=== PATIENT | male | born 1960 | race Caucasian/White ===

== ENCOUNTER 2019-12-29 00:23 | Inpatient (IN) | payer OTHER ==
[~2019-12-29] VITALS: Ht 170.2 cm; Wt 106.5 kg
[2019-12-29] VITALS (46 sets, daily range): BP systolic 76–143; BP diastolic 38–77
[~2019-12-29 00:23] MED LIST: HYDROCODONE-AP1 EAC6 PO; TESSALON PERLE100 MG PO; ZPAK PO
[2019-12-29] MEDS ORDERED: FUROSEMIDE 40 M40 MG PO (00:36)
[2019-12-29] MEDS ORDERED: KLOR-CON 10 ER10 MEQ PO (00:37)
[2019-12-29] MEDS ORDERED: SPIRONOLACTONE25 MG PO (00:37)
[2019-12-29] MEDS ORDERED: ALLOPURINOL 10100 M3 PO (00:37)
[2019-12-29] MEDS ORDERED: ATORVASTATIN CA80 MG PO (00:37)
[2019-12-29] MEDS ORDERED: CARVEDILOL25 MG PO (00:37)
[2019-12-29] MEDS ORDERED: ASA81BEC PO (00:38)
[2019-12-29] MEDS ORDERED: ENTRESTO 97 MG1 EACH PO (00:38)
[2019-12-29] MEDS ORDERED: COLCRYS0.6 MG PO (00:38)
[2019-12-29] MEDS ORDERED: PROTONIX40 M2 PO (00:38)
[2019-12-29 00:57] LABS: ABSOLUTE BASOPHILS 0.1 thou/uL (0.0-0.2); ABSOLUTE EOSINOPHILS 0.2 thou/uL (0.0-0.7); ABSOLUTE LYMPHOCYTES 0.8 thou/uL (0.8-5.3); ABSOLUTE MONOCYTES 0.7 thou/uL (0.0-1.2); ABSOLUTE NEUTROPHILS 8.7 thou/uL (1.6-8.1); BASOPHILS 1.1 %; EOSINOPHILS 2.2 %; HEMATOCRIT 34.7 % (42.0-52.0); LYMPHOCYTES 7.6 %; MCH 28.8 pg (26.0-34.0); MCHC 31.7 g/dL (28.0-37.0); MCV 90.7 fL (80.0-100.0); MONOCYTES 6.7 %; NUCLEATED RBCS 0 /100WBC; PLATELET COUNT* 227 thou/uL (150-400); POLYS 82.4 %; RBC 3.82 mil/uL (4.50-6.00); RDW-CV 17.2 % (10.5-14.5); WBC 10.6 thou/uL (4.0-11.0)
[2019-12-29 01:11] LABS: CALCIUM 8.2 mg/dL (8.5-10.1); CREATININE 4.2 mg/dL (0.6-1.3)
[2019-12-29 01:15] LABS: APTT 29.4 Seconds (25.0-31.3); INR 1.1; PROTIME 11.3 Seconds (9.20-11.50)
[2019-12-29 01:17] LABS: POTASSIUM 6.6 mmol/L (3.5-5.1)
[2019-12-29 01:23] LABS: ALBUMIN 3.4 g/dL (3.4-5.0); CK-MB MASS 0.7 ng/mL (<0.5-3.6); MAGNESIUM 2.1 mg/dL (1.8-2.4); TOTAL BILIRUBIN 0.4 mg/dL (<0.1-1.0); TOTAL PROTEIN 7.1 g/dL (6.4-8.2)
[2019-12-29 02:19] LABS: CALCIUM 7.7 mg/dL (8.5-10.1); CREATININE 4.3 mg/dL (0.6-1.3)
[2019-12-29 02:31] LABS: POTASSIUM 6.9 mmol/L (3.5-5.1)
[2019-12-29 06:50] LABS: MAGNESIUM 2.2 mg/dL (1.8-2.4)
[2019-12-29 06:51] LABS: POTASSIUM 7.2 mmol/L (3.5-5.1)
--- NOTE | 2019-12-29 07:50 | NUR ---
ADMITTED TO ICU BED 5 AT 0315, SEE ASSESSMENTS. LEVOPHED TITRATED FOR MAP >65. PT REPORTS HE HAS HAD A DRY COUGH AND NAUSEA X 1 MONTH, INTERMITTED DIARRHEA X 2-3 WEEKS. PT REPORTS RECENTLY HAVING INCREASED BLE SWELLING FOR WHICH HE TREATS BY "DOUBLING UP ON MY LASIX AND DRINKING LESS FLUIDS." APPROXIMATELY 0630, ERP MANAGER ALARMED FOR TACHYCARDIA WITH SUSTAINED HR 120-130S. UPON CHECKING ON PT HE REPORTED 3/10 CHEST PAIN AND NAUSEA. SHORTLY THEREAFTER PT HAD ONE EPISODE OF EMESIS. EKG OBTAINED, NO CHANGE WHEN COMPARED TO ER EKG. BMP AND TROPONING OBTAINED, CRITICAL TROPONIN AND POTASSIUM CALLED TO DR BOBO, ALSO INFORMED OF PTS CP & EKG; ORDERS RECEIVED. DR SANDOVAL ON UNIT AT THIS TIME AND ALSO UPDATED.
[2019-12-29 08:24] LABS: BE -12.5 mmol/L (-2 to +3); PCO2 39.3 mmHg (35.0-45.0)
[2019-12-29 08:28] LABS: PO2 40.7 mmHg (75.0-100.0)
[2019-12-29 08:29] LABS: pH 7.195 (7.340-7.450)
[2019-12-29 10:47] LABS: BE -8.9 mmol/L (-2 to +3)
[2019-12-29 10:49] LABS: pH 7.289 (7.340-7.450)
[2019-12-29 11:42] LABS: HEMATOCRIT 34.3 % (42.0-52.0); HEMOGLOBIN 10.8 gm/dL (14.0-18.0); MCH 28.7 pg (26.0-34.0); MCHC 31.4 g/dL (28.0-37.0); MCV 91.2 fL (80.0-100.0); MPV 9.2 fl. (7.2-11.1); NUCLEATED RBCS 0 /100WBC; PLATELET COUNT* 240 thou/uL (150-400); RBC 3.76 mil/uL (4.50-6.00); RDW-CV 17.3 % (10.5-14.5); WBC 12.2 thou/uL (4.0-11.0)
[2019-12-29 12:00] LABS: CALCIUM 8.7 mg/dL (8.5-10.1); CREATININE 4.4 mg/dL (0.6-1.3)
[2019-12-29 12:02] LABS: POTASSIUM 6.3 mmol/L (3.5-5.1); TROPONIN-I LEVEL 3.57 ng/mL (<0.06)
[2019-12-29 12:03] LABS: URINE POTASSIUM-RANDOM 32.9 mmol/L
[2019-12-29 12:09] LABS: URINE BLOOD 1+ (Negative); URINE CLARITY CLEAR; URINE COLOR YELLOW; URINE GLUCOSE-RANDOM NEGATIVE (Negative); URINE KETONES NEGATIVE (Negative); URINE LEUKOCYTES-REFLEX NEGATIVE (Negative); URINE NITRITE-REFLEX NEGATIVE (Negative); URINE PROTEIN 2+ (Negative); URINE UROBILINOGEN 0.2 E.U./dl (0.2-1.0)
[2019-12-29 12:11] LABS: URINE BILIRUBIN 1+ (Negative)
[2019-12-29 12:12] LABS: ICTOTEST (BILI CONFIRMATORY) Negative (Negative)
--- NOTE | 2019-12-29 12:29 | CON ---
[address] [address] CONSULTATION Name: YANIV SPEARS Room: [address] ADM IN M.R.#: [id number] Admission: 12/29/19 Attend Phys: Ivory Murphy Discharge: Date of : 56 Report #: [id number] THIS REPORT FOR: //name// cc: Queta Hall Linda J. DO ~ THIS REPORT FOR: //name// CC: Queta Nunez CARDIOLOGY CONSULTATION HISTORY OF PRESENT ILLNESS: I was asked by Dr. Nunez to see this 59-year-old white male in Cardiology consultation for evaluation and treatment of atrial fibrillation with a rapid ventricular response as well as chest pain. This man may have a jrm-VG-omdagju elevation SC, although it is not clear as yet. He does have some congestive heart failure that appears to be acute on chronic. This is apparently combined congestive heart failure. He has a known ischemic cardiomyopathy with coronary artery disease and previous bypass graft surgery. He has had an AICD. He does have a history of gout. He has currently been hypotensive; however, his blood pressure is being supported with 10 mcg of Levophed and his blood pressure is quite adequate. He is in acute renal failure with hyperkalemia and is in need of dialysis. His creatinine is 4 with the potassium of 7.2 and bicarbonate of 19, BUN of 76, sodium of 134. Note, this man is not known to be diabetic. However, when he came into the ER, his blood sugar was 195 and his subsequent blood sugar was 250. He is probably diabetic. He was brought to the hospital because of chest pain. He described the chest pain as being upper epigastric in origin and associated with nausea. The pain had a slight burning quality, but later spread across his chest as a pressure sensation. He says it was like his previous MIs that he has had. He did have diaphoresis and shortness of breath and nausea. He did vomit before all of this started. When he arrived in the Emergency Room, he was in a wide complex tachycardia, which may well be atrial fibrillation, although it is not clear he is in a paced rhythm and the heart rate was 105 here. The earliest EKG was also paced and the heart rate was 119. It could well represent atrial fibrillation or atrial flutter or atrial fib/flutter. There is no evidence of ST-segment elevation SC on this study. Initial troponin was less than 0.06. A subsequent one about an hour and 15 minutes later was less than 0.06 and then one some 4 hours and 20 minutes later was 0.65. An NT-proBNP was 7215. The chest x-ray was read as cardiomegaly with pulmonary vascular congestion. This was an AP study, however, and there is mild bilateral interstitial opacities suggestion of mild interstitial pulmonary edema. A second chest x-ray was also done, which was similar. Currently, he is feeling fairly well. He says he has no chest pain and he denies shortness of breath. He is sitting up in bed. PAST MEDICAL HISTORY: As described above. He apparently does have a past history of atrial fibrillation as well. His home medications include Lasix [address] [place] [address] CONSULTATION Name: YANIV SPEARS Room: [address] IN M.R.#: [id number] Admission: 12/29/19 Attend Phys: Shant JacoboIvory Araujo Discharge: Date of : 56 Report #: [id number] mg daily, spironolactone 25 mg daily, potassium one tablet daily. I do note that for about 2 weeks, he had increased his Lasix because of his lower extremity edema. His lower extremity edema did not seem to respond to the diuretic. Note, he is followed at [facility] and we do not have any records as yet. MEDICATIONS: He is on carvedilol 25 mg b.i.d.; atorvastatin 80 mg daily; allopurinol 300 mg daily, presumably for gout; presumably his atorvastatin is for hypercholesterolemia. He is also on colchicine 0.6 mg daily p.r.n. gout, aspirin 81 mg daily, Entresto 97/103 mg b.i.d. and pantoprazole 40 mg daily. ALLERGIES: HE IS ALLERGIC TO PENICILLIN. SOCIAL HISTORY: Denies alcohol use or recreational drug use. He denies smoking. REVIEW OF SYSTEMS: Negative except as in the history of present illness and past medical history. He is negative for some 45 different complaints in 14 different system categories. Please see review of system form for details and negatives in review of systems. FAMILY HISTORY: Positive for coronary heart disease. PHYSICAL EXAMINATION: GENERAL: He presents as well-developed, well-nourished white male in no acute distress. VITAL SIGNS: His pulse was 83 and regular. Note he got digoxin 0.5 mg last night for an increased heart rate, respirations are 18 and regular, blood pressure is 107/69 and his temperature was 98.2. HEENT: His head was atraumatic. Eyes clear. NECK: Supple. There is no jugular venous distention or hepatojugular reflux. Thyroid is not enlarged. There is no adenopathy. SKIN: Warm and dry. Mucous membranes are moist. LUNGS: Reveal coarse breath sounds bilaterally with scattered crackles in the bases. HEART: Revealed normal first and second heart sound. There was no S4, no S3, no murmurs, rubs, thrills, heaves or gallops. The rhythm was regular and the rate was 82. PMI is not displaced. There are no murmurs, rubs, thrills, heaves or gallops. ABDOMEN: Soft, flat and nontender. No palpable masses, no organomegaly. EXTREMITIES: Reveal no cyanosis or clubbing. There was 1+ ankle and pedal edema. NEUROLOGIC: The patient mentated normally, talked normally, moved all extremities normally. IMPRESSION: [place] [address] CONSULTATION Name: YANIV SPEARS Room: [address] IN [facility]#: [id number] Admission: 12/29/19 Attend Phys: Ivory Murphy Discharge: Date of : 56 Report #: [id number] 1. Chest pain, possible non-ST segment elevation myocardial infarction. 2. Congestive heart failure, acute on chronic combined. 3. Ischemic cardiomyopathy. 4. Coronary artery disease. 5. Status post coronary artery bypass graft surgery. 6. Status post ICD. 7. Gout. 8. Atrial fibrillation with a rapid ventricular response. 9. Hypotension. 10. Hyperkalemia. 11. Acute renal failure. RECOMMENDATION: Continue his current medications. He is going to get dialyzed today. He is obviously in a metabolic imbalance. Hopefully, once his potassium is down and he is no longer acidotic and he has had some fluid taken off, he will be better. We will check more troponins and more EKGs. It is not clear given that he has renal failure that final troponin is meaningful. It is also not clear if the BNP is particularly meaningful. Thank you very much for asking me to see the patient. If there are any questions, please feel free to contact me. <ELECTRONICALLY SIGNED> By: Jai Ayala MD, FACC 12/29/19 1229 [id number]. Rustam Ayala MD, FACC /nt
[2019-12-29 12:30] LABS: SQUAMOUS 0-3 Few /LPF (0-3)
[2019-12-29 12:31] LABS: URINE RBC 3-10 Few /HPF (0-2); URINE WBC-REFLEX 6-15 Few /HPF (0-5)
[2019-12-29 12:38] LABS: BACTERIA-REFLEX None Seen /HPF (None Seen); MUCUS 4-6 Moderate strn/LPF (None Seen)
[2019-12-29 12:39] LABS: AMORPHOUS URATES Many /LPF (None Seen); HYALINE CASTS 4-10 Moderate /LPF (None Seen)
[2019-12-29 12:40] LABS: BE -7.7 mmol/L (-2 to +3); PCO2 43.8 mmHg (35.0-45.0)
[2019-12-29 12:47] LABS: PO2 46.9 mmHg (75.0-100.0); pH 7.257 (7.340-7.450)
[2019-12-29 13:07] LABS: ABSOLUTE LYMPHOCYTES 1.3 thou/uL (0.8-5.3); ABSOLUTE MONOCYTES 0.9 thou/uL (0.0-1.2); ANISOCYTOSIS 1+; PLATELET ESTIMATE ADEQUATE
[2019-12-29 13:08] LABS: BURR CELLS 1+
--- NOTE | 2019-12-29 14:12 | EKG ---
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 12/29/19 1410 0025 0025 Elmo Kapoor MD, [facility] /EPI
[2019-12-30] VITALS (24 sets, daily range): BP systolic 83–117; BP diastolic 41–66
[2019-12-30 04:56] LABS: HEMATOCRIT 29.5 % (42.0-52.0); HEMOGLOBIN 9.6 gm/dL (14.0-18.0); MCHC 32.5 g/dL (28.0-37.0); MCV 89.2 fL (80.0-100.0); MPV 9.2 fl. (7.2-11.1); RBC 3.31 mil/uL (4.50-6.00); RDW-CV 17.4 % (10.5-14.5); WBC 9.8 thou/uL (4.0-11.0)
[2019-12-30 05:11] LABS: ALBUMIN 3.1 g/dL (3.4-5.0); CALCIUM 8.1 mg/dL (8.5-10.1); MAGNESIUM 1.8 mg/dL (1.8-2.4); TOTAL BILIRUBIN 0.6 mg/dL (<0.1-1.0); TOTAL PROTEIN 6.6 g/dL (6.4-8.2)
[2019-12-30 05:16] LABS: CREATININE 3.2 mg/dL (0.6-1.3); POTASSIUM 3.9 mmol/L (3.5-5.1)
--- NOTE | 2019-12-30 06:56 | NUR ---
ASSUMED PATIENT CARE AT 1900. ASSESSMENTS COMPLETED CHARTED. CARDIAC MONITORING IN PLACE. BED LOCKED AND IN LOWEST POSITION. FALL PRECAUTIONS IN PLACE FOR PATIENT SAFETY. CLWR.
[2019-12-30 08:47] LABS: CHOLESTEROL 98 mg/dL (<200); HDL CHOLESTEROL 30 mg/dL (>40); LDL CHOLESTEROL 48 mg/dL (<100); SERUM ASSESSMENT Clear; TC:HDL 3.3 Ratio (Not establshd); TRIGLYCERIDE 103 mg/dL (<150); VLDL 21 mg/dL (<40)
--- NOTE | 2019-12-30 10:28 | CON ---
[facility] [address] [place] [address] CONSULTATION Name: YANIV SPEARS Room: [address] IN M.R.#: [id number] Admission: 12/29/19 Attend Phys: Ivory Murphy Discharge: Date of : 56 Report #: [id number] THIS REPORT FOR: //name// cc: Queta Hall Linda J. DO ~ THIS REPORT FOR: //name// CC: Queta Nunez DATE OF SERVICE: 12/29/2019 REQUESTING PHYSICIAN: Dr. Simpson REASON FOR CONSULTATION: Acute kidney injury and hyperkalemia. HISTORY OF PRESENT ILLNESS: The patient is a 59-year-old gentleman with medical history significant for coronary artery disease, status post bypass graft surgery. He presents with complaints of chest pain. In the Emergency Room, he was found to be hypotensive. Initially, he was given some fluids. Also he was found to be in acute kidney injury and hyperkalemia. The patient is not aware of history of renal disease, but I am not sure if this is a fact. Again, he could have some chronic kidney disease that he is not aware of. So, his potassium was 7. He was given insulin, bicarbonate, albuterol, Kayexalate. His urine output is close to zero. His potassium is still elevated, so he will be emergently dialyzed. MEDICAL HISTORY: Coronary artery disease, obesity, history of hypertension, history of congestive heart failure, unknown baseline of his creatinine. MEDICATIONS: Medications prior to admission reviewed. He was on furosemide 40 mg twice a day, spironolactone 25 mg a day, potassium chloride 10 mEq a day, Coreg 25 mg twice a day, atorvastatin, allopurinol, colchicine p.r.n., aspirin, Entresto twice a day and Protonix 40 mg a day. REVIEW OF SYSTEMS: As I mentioned earlier. SOCIAL HISTORY: Used to smoke, but quit several years ago. No alcohol abuse. PHYSICAL EXAMINATION: Physical exam was not performed due to COVID precaution. Discussed with the patient and reviewed physical exams that were done by interventional tech, Dr. Ayala, and by Dr. Simpson. I did not perform physical exam to preserve PPE and also reduce the risk of exposure to possibly deadly virus. Looking at the patient from the window, he is sitting in the bed, in no acute distress. [place] [address] CONSULTATION Name: YANIV SPEARS Room: [address]#: [id number] Admission: 12/29/19 Attend Phys: Ivory Murphy Discharge: Date of : 56 Report #: [id number] Physical exam by interventional tech and primary care physician revealed: NECK: Fatty. LUNGS: Some basilar crackles with no wheezes. CARDIOVASCULAR: Irregular rate. ABDOMEN: Obese, soft. LOWER EXTREMITIES: With 2+ edema. LABORATORY DATA: Most recent one revealed serum sodium 134, potassium 7.2, chloride 106, carbon dioxide 19, BUN 76, creatinine 4.0. His troponin was 0.65. Hemoglobin is 11.0. ASSESSMENT AND PLAN: 1. Acute kidney injury likely due to heart problems and under perfusion of the kidneys. 2. Hyperkalemia due to acute kidney injury. 3. Obesity. 4. Coronary artery disease. 5. Cardiomyopathy. 6. Obesity. PLAN: The patient will receive treatment for his hyperkalemia if hyperkalemia persists. We will place a Penaloza catheter. We will initiate emergent dialysis. Discussed the case with Dr. Ayala, interventional tech, and with the ICU nurse. <ELECTRONICALLY SIGNED> By: Peter Fuentes MD 12/30/19 1028 0951 [id number] Fuentes MD /nt
--- NOTE | 2019-12-30 11:43 | NUR ---
ICU rounds: Pt admitted for ARF and CP. BP better today. Emmergent dialysis yesterday, ? need for jail dialysis, renal following. Art line. Covid pending. Hep gtt. Central line. Doing better today on 2L of oxygen. Penaloza. No dialysis today, reeval tomorrow.
--- NOTE | 2019-12-30 16:14 | EKG ---
[place] [address] ELECTROCARDIOGRAM REPORT Name: ELIDIA SPEARSARDO Room: [address] ADM IN M.R.#: [id number] Admission: 12/29/19 Attend Phys: Shant Nunez Discharge: Date of : 56 Date of Service: 12/29/19 0630 Report #: [id number] THIS REPORT FOR: //name// [facility] Test Date: 2019-12-29 Test Time: 06:30:13 Pat Name: YANIV SPEARS Department: Room: 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
--- NOTE | 2019-12-30 16:25 | EKG ---
[place] [address] ELECTROCARDIOGRAM REPORT Name: ELIDIA SPEARSARDO Room: [address] ADM IN M.R.#: [id number] Admission: 12/29/19 Attend Phys: Shant Nunez Discharge: Date of : 56 Date of Service: 12/29/19 2352 Report #: [id number] THIS REPORT FOR: //name// [facility] Test Date: 2019-12-29 Test Time: 23:52:49 Pat Name: YANIV SPEARS Department: Room: 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
--- NOTE | 2019-12-30 16:27 | EKG ---
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 : 1960 Requested By: Jai Ayala Order Number: [id number] Reading MD: Ian Ellison Measurements Intervals [place] Rate: 88 P: 0 SD: 152 QRS: -89 QRSD: 149 T: 51 QT: 395 QTc: 478 Interpretive Statements arial fib-flutter with Ventricular-paced complexes No further analysis attempted due to paced rhythm Compared to ECG 12/29/2019 00:25:09 No significant change Electronically Signed On 12-30-2019 16:25:12 CDT by Ian Ellison [email or web address] <ELECTRONICALLY SIGNED> By: Ian Ellison MD, [facility] 12/30/19 1625 0917 09 Ian Ellison MD, [facility] /EPI
--- NOTE | 2019-12-30 18:36 | NUR ---
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 PT ADVANCED TO CARB CONTROL DIET WITH NAUSEA AND CHEST PAIN AFTERWARDS-MEDICATIONS GIVEN WITH RELIEF.PT HAS HAD LOW GRADE FEVER THROUGHOUT SHIFT. CALL LIGHT AND FALL PRECAUTIONS IN PLACE.WILL CONTINIUE TO MONITOR FOR DURATION OF SHIFT.
[2019-12-31] VITALS (40 sets, daily range): BP systolic 82–129; BP diastolic 49–73
--- NOTE | 2019-12-31 02:23 | NUR ---
ASSUMED PATIENT CARE AT 1900. ASSESSMENTS COMPLETED CHARTED. CARDIAC MONITORING IN PLACE. BED LOCKED AND IN LOWEST POSITION. CLWR. PATIENT REPORT AND HANDOFF GIVEN TO RN MANDY.
[2019-12-31 04:12] LABS: MCHC 32.2 g/dL (28.0-37.0); MPV 8.6 fl. (7.2-11.1); RBC 3.45 mil/uL (4.50-6.00); RDW-CV 16.9 % (10.5-14.5); WBC 12.4 thou/uL (4.0-11.0)
[2019-12-31 04:30] LABS: ALBUMIN 3.3 g/dL (3.4-5.0); CALCIUM 8.5 mg/dL (8.5-10.1); CREATININE 3.7 mg/dL (0.6-1.3); MAGNESIUM 1.9 mg/dL (1.8-2.4); TOTAL BILIRUBIN 0.8 mg/dL (<0.1-1.0); TOTAL PROTEIN 7.2 g/dL (6.4-8.2)
--- NOTE | 2019-12-31 06:27 | NUR ---
PATIENT REMAINS FREE OF CHEST PAIN SINCE THIS RN RECEIVED PT BUT HE DOES C/O SLIGHT ABDOMINAL CRAMPING AND NAUSEA. NAUSEA RELIEVED WITH ZOFRAN AND ICE CHIPS. PATIENT DENIES NEED FOR PAIN MEDICATION. TURNER REMAINS IN PLACE TO DD. CALL LIGHT WITHIN REACH.
[2019-12-31 10:08] LABS: HEPATITIS B SURFACE AG Negative (Negative)
--- NOTE | 2019-12-31 11:19 | 2DMMODE ---
[place] [address] 2 D/M-MODE ECHOCARDIOGRAM Name: REBECCA SPEARSO Room: [address] ADM IN M.R.#: [id number] Admission: 12/29/19 Attend Phys: Shant Nunez Discharge: Date of : 56 Date of Service: 12/31/19 1117 Report #: [id number] THIS REPORT FOR: cc: Queta Hall,Queta Simental,Ian Hart MD [facility] ~ APPROVED REPORT Study performed: 12/31/2019 09:21:58 EXAM: Comprehensive 2D, Doppler, and color-flow Echocardiogram Patient Location: In-Patient BSA: 2.19 HR: 82 bpm BP: 94/53 mmHg Other Information Study Quality: Technically Limited Technically limited study due to body habitus, inability to position patient. Indications Congestive Heart Failure Chest Pain 2D Dimensions IVSd: 8.96 (7-11mm) LVOT Diam: 21.65 (18-24mm) LVDd: 69.69 mm PWd: 14.29 (7-11mm) Ascending Ao: 35.10 (22-36mm) LVDs: 61.21 (25-40mm) Aortic Root: 31.55 mm Volumes Left Atrial Volume (Systole) LA ESV Index: 47.30 mL/m2 Aortic Valve AoV Peak Jagdish.: 0.79 m/s AO Peak Gr.: 2.49 mmHg LVOT Max P.28 mmHg AO Mean Gr.: 1.34 mmHg LVOT Mean P.70 mmHg LVOT Max V: 0.56 m/s AO V2 VTI: 11.87 cm LVOT Mean V: 0.39 m/s LUIS F (VTI): 2.74 cm2 LVOT V1 VTI: 8.83 [place] [address] 2 D/M-MODE ECHOCARDIOGRAM Name: YANIV SPEARS Room: [address] IN ..#: [id number] Admission: 12/29/19 Attend Phys: Shant Nunez Discharge: Date of : 56 Date of Service: 12/31/19 1117 Report #: [id number] Mitral Valve E/A Ratio: 2.89 MV Decel. Time: 136.75 ms MV E Max Jagdish.: 0.66 m/s MV PHT: 39.66 ms MVA (PHT): 5.55 cm2 TDI E/Lateral E': 11.00 E/Medial E': 8.25 Medial E' Jagdish.: 0.08 m/s Lateral E' Jagdish.: 0.06 m/s Pulmonary Valve PV Peak Jagdish.: 0.73 m/s PV Peak Gr.: 2.12 mmHg Tricuspid Valve RAP Estimate: 5.00 mmHg TR Peak Gr.: 51.65 mmHg RVSP: 61.65 mmHg PA Pressure: 61.65 mmHg Left Ventricle Left ventricle is severely dilated. There is severe diffuse hypokinesis of left ventricular wall motion. There is normal left ventricular wall thickness. Left ventricular systolic function is severely decreased. LVEF is 15-20%. Right Ventricle Right ventricle is mild to moderately dilated. The right ventricular systolic function is normal. Pacemaker lead is present in the right ventricle. Atria Left atrium is moderately dilated. Right atrium is mildly dilated. Aortic Valve Mild aortic valve sclerosis. No aortic regurgitation is present. There is no aortic valvular stenosis. Mitral Valve The mitral valve is normal in structure. Mild mitral regurgitation. No evidence of mitral valve stenosis. Tricuspid Valve The tricuspid valve is normal in structure[place] [address] 2 D/M-MODE ECHOCARDIOGRAM Name: YANIV SPEARS Room: [address] IN [facility]#: [id number] Admission: 12/29/19 Attend Phys: Shant Nunez Discharge: Date of : 56 Date of Service: 12/31/19 1117 Report #: [id number] regurgitation. Moderate pulmonary hypertension. Pulmonic Valve The pulmonary valve is normal in structure. There is no pulmonic valvular regurgitation. Great Vessels The aortic root is normal in size. IVC is normal in size and collapses >50% with inspiration. Pericardium There is no pericardial effusion. <Conclusion> Left ventricle is severely dilated. There is normal left ventricular wall thickness. Left ventricular systolic function is severely decreased. LVEF is 15-20%. Right ventricle is mild to moderately dilated. Left atrium is moderately dilated. Right atrium is mildly dilated. Mild aortic valve sclerosis. No aortic regurgitation is present. There is no aortic valvular stenosis. The mitral valve is normal in structure. Mild mitral regurgitation. The tricuspid valve is normal in structure. Mild tricuspid regurgitation. Moderate pulmonary hypertension. IVC is normal in size and collapses >50% with inspiration. There is no pericardial effusion. There is severe diffuse hypokinesis of left ventricular wall motion. Pacemaker lead is present in the right ventricle. <ELECTRONICALLY SIGNED> By: Ian Ellison MD, FACC 12/31/19 1117 111 111 Ian Ellison MD, FACC /INF
--- NOTE | 2019-12-31 11:41 | NUR ---
ICU rounds: Med/surg tele status, per cardiology will remain in ICU for another night, switching Pt to PO amio. Covid negative. Off hep gtt. Nauseous. Temporary dialysis cath in place, waiting for renal to determine if Pt will need dialysis today, Pt hasn't needed dialysis the past 2 days. CR up a little today. Pt asleep, spoke with via phone. Pt is normally independent, but reports that Pt had gotten weaker over the past few weeks, with increased swelling in his legs. No DME. No hx of HH or SNF. Updated on POC. Following.
--- NOTE | 2019-12-31 14:07 | EKG ---
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1960 Requested By: Shant Nunez Order Number: [id number] Deny MD: Ian Ellison Measurements Intervals [place] Rate: 121 P: 0 [place]: 96 QRS: 262 QRSD: 142 T: 70 QT: 346 QTc: 491 Interpretive Statements Pace rhythm at tachycardic rate No further analysis attempted due to paced rhythm Baseline wander in lead(s) III,V3,V4,V6 Compared to ECG 12/30/2019 09:17:27 Rate has increased Electronically Signed On 12-31-2019 14:05:17 CDT by Ian Ellison [email or web address] <ELECTRONICALLY SIGNED> By: Ian Ellison MD, [facility] 12/31/19 1405 07 180 Ian Ellison MD, [facility] /EPI
--- NOTE | 2019-12-31 17:27 | NUR ---
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
--- NOTE | 2019-12-31 20:00 | NUR ---
RECEIVED REPORT AND ASSUMED CARE OF PT EARLIER. ASSESSMENT COMPLETED AT THIS TIME. PT DROWSY BUT AWAKENS EASILY, PLEASANT AND COOPERATIVE. TESSIO CATH NOTED TO LT IJ. JOHNNY PATENT WITH TEMP PROBE. SOCK IRONER ON SHOWING V-PACED RHYTHM. DISCUSSED WITH PT MONITOR TONIGHT DUE TO CHANGE IN MEDICATION AND WILL TRANSFER TO TELE UNIT TOMORROW.
[2020-01-01 00:10] VITALS: BP 106/55
[2020-01-01 04:00] VITALS: BP 109/54
[2020-01-01 04:18] LABS: HEMATOCRIT 27.9 % (42.0-52.0); MCH 29.2 pg (26.0-34.0); MCHC 32.3 g/dL (28.0-37.0); MCV 90.1 fL (80.0-100.0); MPV 9.5 fl. (7.2-11.1); RBC 3.1 mil/uL (4.50-6.00); WBC 13.2 thou/uL (4.0-11.0)
[2020-01-01 05:37] LABS: CALCIUM 8.3 mg/dL (8.5-10.1); CREATININE 3.3 mg/dL (0.6-1.3); POTASSIUM 4.3 mmol/L (3.5-5.1)
--- NOTE | 2020-01-01 05:41 | NUR ---
SLEPT ALL NIGHT BUT AWAKENS EASILY. MOVING SELF IN BED FOR COMFORT. OFFERED TO ASSIST WITH REPOSITIONING ONTO SIDES BUT REFUSED. TURNER WITH 700 CC OF RAFAL URINE WITH SEDIMENT. CONT TO SHOW V PACED RYTHYM ON MONITOR. NO CHANGE IN ASSESSMENT. HS GOALS OF REST AND SAFETY ACHIEVED.
[2020-01-01 08:00] VITALS: BP 105/71; BP 111/66
--- NOTE | 2020-01-01 09:28 | NUR ---
0730 ASSUMED CARE OF PATIENT. PLEASE SEE DOCUMENTED ASSESSMENT. PT WILLING TO GET UP. HE IS CONCERNED ABOUT NAUSEA HE COULD NOT EAT YESTERDAY. DR SANDOVAL HERE AND ORDERS NOTED.
--- NOTE | 2020-01-01 10:59 | NUR ---
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 PATINET GIVEN URINAL
[2020-01-01 12:00] VITALS: BP 96/55
--- NOTE | 2020-01-01 12:12 | NUR ---
ICU rounds: Tele status. Doing ok. Continue nausea, start reglan. Off o2. Off IVABX. Penaloza out. Anticipate dc to home tomorrow.
[2020-01-01 16:00] VITALS: BP 95/54
--- NOTE | 2020-01-01 16:50 | NUR ---
1630 VOIDED LARGE AMOUNT BUT MISSED URINAL. BLADDER SCANNED WITH NO RESIDUAL.
--- NOTE | 2020-01-01 16:51 | NUR ---
PATIENT PROGRESSING TOWARDS GOALS. PT IS TELE STATUS. NO NAUSEA OR VOMITING. UP IN CHAIR TWICE. BOWELS HAVE MOVED. PT WAS OFF OF SUPPLEMENTAL OXYGEN BUT PUT BACK ON 2LPM BY RESPIRATORY THERAPY WHEN HE WAS ASLEEP. PATIENT WILL MOVE OUT OF ICU THIS EVENING.
--- NOTE | 2020-01-01 18:48 | NUR ---
PATIENT TO MOVE TO ROOM 212. PATIENT INFORMED ABD IS NOTIFYING HIS FAMILY.
[2020-01-02] VITALS (7 sets, daily range): BP systolic 84–135; BP diastolic 57–75
[2020-01-02 05:14] LABS: ALBUMIN 2.9 g/dL (3.4-5.0); CALCIUM 8.2 mg/dL (8.5-10.1); CREATININE 2.7 mg/dL (0.6-1.3); MAGNESIUM 1.9 mg/dL (1.8-2.4); TOTAL BILIRUBIN 0.5 mg/dL (<0.1-1.0); TOTAL PROTEIN 6.5 g/dL (6.4-8.2)
--- NOTE | 2020-01-02 16:07 | NUR ---
ASSUMED CARE OF PATIENT THIS AM AT 0730. PATIENT IS ALERT AND ORIENTED X 4. HE C/O NAUSEA AND PAIN WITH COUGH TODAY. NEPHROLOGY IN TO SEE PATIENT THIS AM AND ORDERS WERE WRITTEN. POST VOID BLADDERSCAN WAS 0. PATIENT GIVEN 40 LASIX IV AFTER BLADDERSCAN. HE WAS INSTRUCTED ON I AND O RECORDING. TELE SHOWS AV PACED. RESPIRATORY TX PER RT. NO SPUTUM PRODUCTION AT THIS TIME. WILL CONTINUE TO MONITOR.
[2020-01-03] VITALS: BP 110/62
[2020-01-03 04:00] VITALS: BP 117/64
--- NOTE | 2020-01-03 05:44 | NUR ---
ASSESSMENTS COMPLETED AT BEDSIDE, PLEASE REFER TO CHARTING. MEDICATIONS ADMINISTERED PER MAR. HOURLY ROUNDING COMPLETED FOR SAFETY, NO CONCERNS NOTED AT THIS TIME. CURRENTLY IN BED WITH CALL LIGHT WITHIN REACH.
[2020-01-03 08:00] VITALS: BP 122/68
[2020-01-03 10:06] LABS: ABSOLUTE BASOPHILS 0.1 thou/uL (0.0-0.2); ABSOLUTE EOSINOPHILS 0.3 thou/uL (0.0-0.7); ABSOLUTE LYMPHOCYTES 0.9 thou/uL (0.8-5.3); ABSOLUTE NEUTROPHILS 9.6 thou/uL (1.6-8.1); BASOPHILS 0.8 %; EOSINOPHILS 2.6 %; HEMATOCRIT 29.1 % (42.0-52.0); HEMOGLOBIN 9.3 gm/dL (14.0-18.0); LYMPHOCYTES 7.6 %; MCH 29.1 pg (26.0-34.0); MONOCYTES 8.6 %; MPV 8.7 fl. (7.2-11.1); NUCLEATED RBCS 0 /100WBC; PLATELET COUNT* 228 thou/uL (150-400); POLYS 80.4 %; RDW-CV 17.6 % (10.5-14.5); WBC 11.9 thou/uL (4.0-11.0)
[2020-01-03 10:24] LABS: CALCIUM 8.2 mg/dL (8.5-10.1); CREATININE 2.4 mg/dL (0.6-1.3); POTASSIUM 3.7 mmol/L (3.5-5.1); TOTAL BILIRUBIN 0.5 mg/dL (<0.1-1.0); TOTAL PROTEIN 6.9 g/dL (6.4-8.2)
[2020-01-03] MEDS ORDERED: PACERONE 200 M200 M1 PO (11:18)
[2020-01-03] MEDS ORDERED: XARELTO15 MG PO (11:18)
[2020-01-03] MEDS ORDERED: CARVEDILOL12.5 MG PO (11:18)
[2020-01-03 12:01] VITALS: BP 98/48
[2020-01-03 16:01] VITALS: BP 107/57
--- NOTE | 2020-01-03 17:36 | NUR ---
PT HAS BEEN RESTING T/O DAY COMFORTABLY. PT DID C/O PAIN TO KNEE THAT WAS RELIEVED WITH TYLENOL.VSS. LABS DRAWN THROUGH IJ CENTRAL LINE WITHOUT ISSUE. ORDERED HH ON DC. PT HAD NOT BEEN USING URINAL FOR VOIDING MOST OF DAY SO ATTEMPTS TO MONITOR OUTPUT HAVE NOT BEEN UNSUCCESSFUL. PT EDUCATED ON PLAN OF CARE AND TREATMENTS. CLWR.WCTM.
[2020-01-03 20:00] VITALS: BP 113/72
[2020-01-04 00:19] VITALS: BP 90/48
[2020-01-04 04:22] VITALS: BP 99/42
[2020-01-04 04:44] LABS: ALBUMIN 2.8 g/dL (3.4-5.0); CALCIUM 7.9 mg/dL (8.5-10.1); CREATININE 2.4 mg/dL (0.6-1.3); MAGNESIUM 1.9 mg/dL (1.8-2.4); PHOSPHORUS* 2.7 mg/dL (2.5-4.9); POTASSIUM 3.8 mmol/L (3.5-5.1)
--- NOTE | 2020-01-04 05:49 | NUR ---
ASSESSMENTS COMPLETED AT BEDSIDE, REFER TO CHARTING, MEDICATIONS ADMINISTERED PER MAR. NO C/O PAIN OR DISCOMFORT NOTED. CURRENTLY ASLEEP IN BED WITH CALL LIGHT WITHIN REACH.
[2020-01-04 08:00] VITALS: BP 103/56
[2020-01-04 11:58] VITALS: BP 95/57
[2020-01-04] MEDS ORDERED: DORYX MPC120 MG PO (14:06)
[2020-01-04 14:13] VITALS: BP 95/57
--- NOTE | 2020-01-04 15:42 | NUR ---
PT HAS RESTED T/O DAY W/O COMPLAINTS. NEPHROLOGY,CARDIOLOGY AND PHYSICIAN HAVE CLEARED PT TO DC TO HOME WITH [facility]. HOME HEALTH SET UP AND [facility] WILL SEE THE PT SUNDAY. PT HAD ALREADY INFORMATION TECHNOLOGY ADVISOR PRESCRIPTIONS SENT TO PHARMACY BY . PRESCRIPTION FOR DOXYCYCLINE GIVEN TO PT. DC INSTRUCTIONS, FOLLOW UP APPOINTMENTS,TREATMENTS, ACTIVITY AND DIET REVIEWED WITH PT WHO UNDERSTANDS WIHTOUT FURTHER QUESTIONS.
== END 2020-01-04 16:00 | disposition home health service (06) | DRG 177 ==
LOC: M.ERS 00:23 → M.TBA-ER 01:42 → M.ICU 01:42 → M.2W 01-01 18:56
PROVIDERS: Family Medicine; Internal Medicine; Internal Medicine Nephrology; Registered Nurse; Surgery; ADMIT Internal Medicine
PROC: B548ZZA Ultrasonography of Superior Vena Cava, Guidance (ICD-10-PCS; principal; 2019-12-29)
PROC: 5A1D70Z Performance of Urinary Filtration, Intermittent, Less than 6 Hours Per Day (ICD-10-PCS; principal; 2019-12-29)
PROC: 02HV33Z Insertion of Infusion Device into Superior Vena Cava, Percutaneous Approach (ICD-10-PCS; principal; 2019-12-29)
DX: J69.0 Pneumonitis due to inhalation of food and vomit (principal); I21.4 Non-ST elevation (NSTEMI) myocardial infarction; N17.0 Acute kidney failure with tubular necrosis; J96.01 Acute respiratory failure with hypoxia; I50.43 Acute on chronic combined systolic (congestive) and diastolic (congestive) heart failure; E87.2 Acidosis; R65.10 Systemic inflammatory response syndrome (SIRS) of non-infectious origin without acute organ dysfunction; K56.7 Ileus, unspecified; I48.91 Unspecified atrial fibrillation; E87.5 Hyperkalemia; I95.9 Hypotension, unspecified; Z20.828 Contact with and (suspected) exposure to other viral communicable diseases; I25.5 Ischemic cardiomyopathy; M10.9 Gout, unspecified; E66.9 Obesity, unspecified; R00.0 Tachycardia, unspecified; K21.9 Gastro-esophageal reflux disease without esophagitis; Z95.0 Presence of cardiac pacemaker; Z88.0 Allergy status to penicillin; Z79.899 Other long term (current) drug therapy; Z82.49 Family history of ischemic heart disease and other diseases of the circulatory system; Z95.1 Presence of aortocoronary bypass graft; Z68.36 Body mass index [BMI] 36.0-36.9, adult; Z87.891 Personal history of nicotine dependence; Z79.82 Long term (current) use of aspirin

== ENCOUNTER 2020-02-12 12:57 | Inpatient (IN) | payer OTHER ==
[~2020-02-12] VITALS: Ht 167.6 cm; Wt 111.5 kg
[~2020-02-12 12:57] MED LIST changes: +ALLOPURINOL 10100 M3 PO; +ASA81BEC PO; +ATORVASTATIN CA80 MG PO; +CARVEDILOL12.5 MG PO; +CARVEDILOL25 MG PO; +COLCRYS0.6 MG PO; +DORYX MPC120 MG PO; +ENTRESTO 97 MG1 EACH PO; +FUROSEMIDE 40 M40 MG PO; +KLOR-CON 10 ER10 MEQ PO; +PACERONE 200 M200 M1 PO; +PROTONIX40 M2 PO; +SPIRONOLACTONE25 MG PO; +XARELTO15 MG PO
[2020-02-12 13:07] VITALS: BP 88/52
[2020-02-12 14:03] LABS: ABSOLUTE BASOPHILS 0.1 thou/uL (0.0-0.2); ABSOLUTE EOSINOPHILS 0.3 thou/uL (0.0-0.7); ABSOLUTE LYMPHOCYTES 0.8 thou/uL (0.8-5.3); ABSOLUTE MONOCYTES 0.5 thou/uL (0.0-1.2); ABSOLUTE NEUTROPHILS 6.8 thou/uL (1.6-8.1); BASOPHILS 1.6 %; HEMATOCRIT 36.9 % (42.0-52.0); HEMOGLOBIN 11.6 gm/dL (14.0-18.0); LYMPHOCYTES 9.2 %; MCH 28.4 pg (26.0-34.0); MCHC 31.6 g/dL (28.0-37.0); MCV 89.8 fL (80.0-100.0); MONOCYTES 6.1 %; MPV 8.2 fl. (7.2-11.1); NUCLEATED RBCS 0 /100WBC; PLATELET COUNT* 278 thou/uL (150-400); POLYS 79.1 %; RDW-CV 19.5 % (10.5-14.5); WBC 8.6 thou/uL (4.0-11.0)
[2020-02-12 14:14] LABS: CALCIUM 8.4 mg/dL (8.5-10.1); CREATININE 5.6 mg/dL (0.6-1.3); POTASSIUM 4.6 mmol/L (3.5-5.1)
[2020-02-12 14:15] LABS: APTT 43.4 Seconds (25.0-31.3); INR 1.6
[2020-02-12 14:25] LABS: ALBUMIN 3.4 g/dL (3.4-5.0); TOTAL BILIRUBIN 0.7 mg/dL (<0.1-1.0); TOTAL PROTEIN 7.5 g/dL (6.4-8.2)
[2020-02-12 19:44] VITALS: BP 92/62
[2020-02-12 20:13] VITALS: BP 93/58
--- NOTE | 2020-02-12 23:35 | NUR ---
ASSUMED CARE OF PT AT 1900. PT IS ALERT AND ORIENTED. VSS. PERRLA. NO COMPLAINTS OF PAIN. STEADY GAIT. PT IS ON A LASIX DRIP. PT IS RESTING COMFORTABLY IN BED. RESPIRATIONS ARE EVEN AND NONLABORED. WILL CONTINUE TO MONITOR PT.
[2020-02-13] VITALS: BP 87/57
[2020-02-13 02:06] LABS: GLYCOHEMOGLOBIN (HGB A1C) 6.2 % (4.8-5.6)
[2020-02-13 04:00] VITALS: BP 91/43
[2020-02-13 05:11] LABS: URINE BILIRUBIN NEGATIVE (Negative); URINE BLOOD NEGATIVE (Negative); URINE CLARITY CLEAR; URINE COLOR YELLOW; URINE GLUCOSE-RANDOM NEGATIVE (Negative); URINE KETONES NEGATIVE (Negative); URINE LEUKOCYTES-REFLEX NEGATIVE (Negative); URINE NITRITE-REFLEX NEGATIVE (Negative); URINE PROTEIN 2+ (Negative); URINE SPECIFIC GRAVITY 1.025 (1.005-1.030); URINE UROBILINOGEN 0.2 E.U./dl (0.2-1.0)
[2020-02-13 05:15] LABS: ALBUMIN 3.2 g/dL (3.4-5.0); CALCIUM 8.3 mg/dL (8.5-10.1); CREATININE 5.7 mg/dL (0.6-1.3); MAGNESIUM 2.7 mg/dL (1.8-2.4); PHOSPHORUS* 6.6 mg/dL (2.5-4.9)
[2020-02-13 05:56] LABS: MUCUS 4-6 Moderate strn/LPF (None Seen); SQUAMOUS 0-3 Few /LPF (0-3); URINE RBC 0-2 Rare /HPF (0-2); URINE WBC-REFLEX 6-15 Few /HPF (0-5)
[2020-02-13 05:57] LABS: AMORPHOUS URATES Moderate /LPF (None Seen); CELLULAR CASTS 0-3 Few /LPF (None Seen); COARSE GRANULAR CASTS 0-3 Few /LPF (None Seen); FINE GRANULAR CASTS 4-10 Moderate /LPF (None Seen); HYALINE CASTS 4-10 Moderate /LPF (None Seen)
[2020-02-13 07:56] VITALS: BP 103/60
[2020-02-13 12:15] VITALS: BP 92/62
--- NOTE | 2020-02-13 13:21 | EKG ---
[place] [address] ELECTROCARDIOGRAM REPORT Name: YANIV SPEARS Room: [address] ADM IN M.R.#: [id number] Admission: 02/12/20 Attend Phys: Med beyer Sa Discharge: Date of : 56 Date of Service: 02/12/20 1408 Report #: [id number] THIS REPORT FOR: //name// [facility] ED Test Date: 2020-02-12 Test Time: 14:08:20 Pat Name: YANIV SPEARS Department: Room: [facility] Gender: M Cotton Breeder: ZAN : 1960 Requested By: Abhi Harrington Order Number: [id number] MD: Ian Ellison Measurements Intervals [place] Rate: 69 P: MT: QRS: 252 QRSD: 174 T: 77 QT: 489 QTc: 524 Interpretive Statements Afib/flut and V-paced complexes No further analysis attempted due to paced rhythm Compared to ECG 12/30/2019 18:08:49 No significant changes Electronically Signed On 02-13-2020 13:20:55 CDT by Ian Ellison [email or web address] <ELECTRONICALLY SIGNED> By: Ian Ellison MD, [facility] 02/13/20 1320 1408 1408 Ian Ellison MD, [facility] /EPI
--- NOTE | 2020-02-13 13:29 | NUR ---
Pt is A&O. Resides at home with , in room at bedside. Independent. Pt states that he ambulates but not very far, just got a wc yesterday. Pt also has a shower chair. No home o2. Hx of [facility]. No hx of SNF. Nephro consulted. Goal is home at dc, CM to discuss HH at dc, Pt does not think that he will need it.
--- NOTE | 2020-02-13 13:30 | NUR ---
re: CHF medication education. Met with pt to discuss heart-failure medication. Discussion focused primarily on carvedilol, furosemide and sacubitril/valsartan. We reviewed rationale for therapies and importance of compliance with prescribed therapies. We discussed possible side effects and potential management strategies. Pt expressed understanding of items discussed. Left medication information sheet with patient. Provided pharmacy contact information for any future questions or issues. Thank you.
[2020-02-13 16:12] VITALS: BP 111/64
--- NOTE | 2020-02-13 17:01 | NUR ---
PT TO HAVE TEMP DIALYSIS CATH PLACED FOR DIALYSIS TONIGHT. IV LASIX D/C'D. DENIES PAIN.
[2020-02-13 21:00] VITALS: BP 106/62
[2020-02-14] VITALS: BP 97/50
[2020-02-14 02:06] LABS: HEPATITIS B SURFACE AG Negative (Negative)
[2020-02-14 04:00] VITALS: BP 102/60
[2020-02-14 05:06] LABS: HEMATOCRIT 31.6 % (42.0-52.0); HEMOGLOBIN 10.2 gm/dL (14.0-18.0); MCH 28.8 pg (26.0-34.0); MCHC 32.4 g/dL (28.0-37.0); MCV 88.9 fL (80.0-100.0); MPV 8.8 fl. (7.2-11.1); RBC 3.55 mil/uL (4.50-6.00); RDW-CV 19.3 % (10.5-14.5); WBC 8.7 thou/uL (4.0-11.0)
[2020-02-14 05:37] LABS: ALBUMIN 3.2 g/dL (3.4-5.0); CALCIUM 8.5 mg/dL (8.5-10.1); CREATININE 4.8 mg/dL (0.6-1.3); MAGNESIUM 2.6 mg/dL (1.8-2.4); PHOSPHORUS* 5.7 mg/dL (2.5-4.9); POTASSIUM 4.6 mmol/L (3.5-5.1)
--- NOTE | 2020-02-14 08:05 | NUR ---
ASSUMED PT CARE AT 2100 AFTER DIALYSIS. PT IS AWAKE AND ORIENTED X4. PT IS VPACED ON THE ELASTIC ATTACHER COVERSTITCH. MODERATE AMOUNT OF OOZING BLOOD NOTED ON THE IJ CATHETER INSERTION SITE. PRESSURE APPLIED BUT TO NO AVAIL, SITE IS STILL BLEEDING, DR TURPIN INFORMED AND GELFOAM AND PRESSURE IS APPLIED TO SITE. BLEEDING SLOWED DOWN SOME BUT STARTED SOAKING THROUGH THE DRESSING AGAIN AFTER AN HOUR. DR LOPEZ FROM IR INFORMED, WITH ORDERS TO REAPPLY A NEW GELFOAM AND TO PUT PRESSURE [id number] DONE, AND TO TRANSFUSE 2 UNITS OF FFP- ORDERS COMMUNICATED TO LAB. SITE IS STILL GOT SOME BLOOD ON THE PRESSURE DRESSING. PT IS ABLE TO SOAK APPROX 5 PCS OF 4X4 GAUZES ALTOGETHER. PT IS CLOSELY MONITORED. REPORT GIVEN TO KAIDEN BROTHERS.
[2020-02-14 08:20] LABS: INR 1.7; PROTIME 17.4 Seconds (9.20-11.50)
[2020-02-14 08:30] VITALS: BP 99/64
[2020-02-14 11:22] VITALS: BP 70/50; BP 75/57; BP 96/72
[2020-02-14 12:30] VITALS: BP 70/50; BP 84/57; BP 96/72; BP 99/54
[2020-02-14 19:23] LABS: INR 1.5; PROTIME 15.3 Seconds (9.20-11.50)
[2020-02-14 20:00] VITALS: BP 97/71
--- NOTE | 2020-02-14 20:06 | NUR ---
I ASSUMED CARE OF THE PATIENT AT 0700. HE IS ALERT AND ORIENTED X4 AND IS UP WITH STAND BY ASSIST. BED IS IN THE LOW LOCKED POSITION AND CALL LIGHT IS IN REACH. HOURLY ROUNDING IS COMPLETED AND PATIENT NEEDS ARE MET. PAIN IS DENIED. IJ DRESSING WAS CHANGED A TOTAL OF 4 TIMES ON MY SHIFT. IR, HIMS AND NEPHRO ARE ALL IN THE LOOP. DIALYSIS WAS COMPLETED. LIDOCAINE WITH EPI WAS USED ALONG WITH GEL FOAM AND AND TEGADERM TO CREATE A PRESSURE DRESSING. WAS AT THE BEDSIDE FOR A WHILE. BREATHING TREATMENTS WERE STARTED. WILL CONTINUE TO MONITOR.
[2020-02-15] VITALS: BP 94/63
[2020-02-15 04:00] VITALS: BP 109/58
[2020-02-15 05:07] LABS: ALBUMIN 3.4 g/dL (3.4-5.0); CALCIUM 8.5 mg/dL (8.5-10.1); CREATININE 4.1 mg/dL (0.6-1.3); MAGNESIUM 2.4 mg/dL (1.8-2.4); PHOSPHORUS* 5.2 mg/dL (2.5-4.9)
--- NOTE | 2020-02-15 05:42 | NUR ---
ASSUMED PT CARE AT APPROX 1930. PT IS AWAKE AND ORIENTED X4. PT IS VPACED ON THE IT INFRASTRUCTURE ENGINEER. TEMP DIALYSIS CATHETER IN RIGHT IJ IS INTACT, MINIMAL BLOOD NOTED ON THE DRESSING. PT DENIES PAIN, NAUSEA IS RELIEVED BY ZOFRAN GIVEN PER OCT. CALL DYER WITHIN REACH. HOURLY ROUNDING DONE FOR PT SAFETY.
[2020-02-15 08:00] VITALS: BP 97/73
--- NOTE | 2020-02-15 09:40 | NUR ---
pt refused entresto, states that his product technology scientist from [facility] called his and told her to have him stop taking it. will discuss with our cardiology group
[2020-02-15 11:30] VITALS: BP 93/57
[2020-02-15 16:00] VITALS: BP 90/68
--- NOTE | 2020-02-15 18:55 | NUR ---
PT VOMITING THIS MORNING, AFTER TWO DOSES OF NAUSEA MEDICATION, NAUSEA IMPROVED THE REST OF DAY AND NO MORE VOMITING. PT C/O BEING VERY SLEEPY TODAY AND GETTING EXERTIONALLY SHORT OF AIR. PT UP TO BATHROOM TO VOID.
[2020-02-15 20:39] VITALS: BP 107/72
[2020-02-16] VITALS: BP 86/48
--- NOTE | 2020-02-16 00:55 | NUR ---
PT CALLED STATING THAT HE WAS HAVING DIFFICULTY BREATHING AT APPROXIMATELY 00:20, LISTENED TO PT'S LUNGS SHORTLY THEREAFTER; CALLED RT TO COME UP AND EVALUATE HIM. PAGED MD AT AROUND 00:35 CONCERNING PT'S BREATHING ISSUE; MD CALLED BACK AT ABOUT 00:40; GAVE ORDERS AND PUT THEM IN HERSELF. NURSING SERVICE DIRECTOR TALKED TO LAB, RESPIRATORY, AND XRAY PERSONNEL TO COORDINATE COMPLETEING ORDERS. NURSING SERVICE DIRECTOR NOTICED UNSTABLE LOOKING RHYTHM AT AROUND 01:25 AND WENT TO CHECK ON PT. PT FOUND UNRESPONSIVE, CODE BLUE CALL IMMEDIATELY. MULTIPLE STAFF FROM VARIOUS DEPARTMENTS PARTICIPATED IN THE CODE, BUT AT 02:11 TIME OF WAS CALLED. FAMILY, MTN, AND MD WERE CALLED.
[2020-02-16 01:11] LABS: HEMATOCRIT 34.8 % (42.0-52.0); MCH 29.1 pg (26.0-34.0); MCHC 31.7 g/dL (28.0-37.0); MCV 91.7 fL (80.0-100.0); MPV 9.2 fl. (7.2-11.1); RBC 3.79 mil/uL (4.50-6.00); RDW-CV 19.4 % (10.5-14.5); WBC 9.3 thou/uL (4.0-11.0)
[2020-02-16 01:15] LABS: CALCIUM 8.8 mg/dL (8.5-10.1); POTASSIUM 5.8 mmol/L (3.5-5.1)
[2020-02-16 01:19] LABS: ALBUMIN 3.5 g/dL (3.4-5.0)
[2020-02-16 01:20] LABS: CREATININE 5.6 mg/dL (0.6-1.3)
--- NOTE | 2020-02-16 15:18 | CON ---
[address] [address] CONSULTATION Name: REBECCA SPEARSO Room: [address] IN M.R.#: [id number] Admission: 02/12/20 Attend Phys: Med Paul Discharge: 02/16/20 Date of : 56 Report #: [id number] THIS REPORT FOR: //name// cc: Queta Hall Linda J. DO ~ THIS REPORT FOR: //name// CC: Med Torres DATE OF SERVICE: 02/13/2020 NEPHROLOGY CONSULTATION CONSULTING PHYSICIAN: Dr. Cardenas. REASON FOR CONSULTATION: Acute kidney injury. HISTORY OF PRESENT ILLNESS: A 59-year-old gentleman who was recently hospitalized here and required temporary dialysis for critical hyperkalemia, volume overload and acute kidney injury. He was directly admitted after he was noted by Dr. Stacy, his outpatient interior systems carpenter to have worsening kidney function and increasing respiratory distress. He has increasing lower extremity swelling. This afternoon, he developed some nausea. He was admitted and started on a Lasix drip, but has had minimal response to that, still feels short of breath, otherwise has no complaints. Denies excessive fluid intake. Says that he tries to follow a low sodium diet. His outpatient diuretics were recently increased and he follows with a chief commercial officer at [facility]. He otherwise does not have any other complaints. REVIEW OF SYSTEMS: Constitutional, psych, heme, eyes, ENT, respiratory, cardiac, GI, , endocrine, all negative except as documented above. PAST MEDICAL HISTORY: Chronic kidney disease stage 4, morbid obesity, coronary artery disease with history of 4-vessel coronary artery bypass in 1990, history of Bi-V ICD, AFib, and ischemic cardiomyopathy with an EF of 15-20%, followed at [facility]. SOCIAL HISTORY: Former smoker. FAMILY HISTORY: Not pertinent in this 59-year-old gentleman. CURRENT MEDICATIONS: Reviewed. PHYSICAL EXAMINATION: [place] [address] CONSULTATION Name: YANIV SPEARS Room: [address] IN [facility]#: [id number] Admission: 02/12/20 Attend Phys: Med Paul Discharge: 02/16/20 Date of : 56 Report #: [id number] VITAL SIGNS: Blood pressure 111/64, pulse 79, respirations 22, and temperature 36.6. GENERAL: No acute distress. EYES: Open. EARS: Externally normal. NECK: Supple. CARDIOVASCULAR: Regular rate. No rub. LUNGS: Diminished breath sounds. ABDOMEN: Soft. MUSCULOSKELETAL: Nontender. LYMPHATICS: Positive edema bilaterally. PSYCHIATRIC: Awake, alert. LABORATORY DATA: Sodium 137, potassium 5, chloride 103, bicarbonate 21, BUN 97, creatinine 5.7, glucose 114, calcium 8.3, phosphorus 6.6, and magnesium 2.7. UA noted. Vitamin D was 11. Yesterday's white cell count 8.6, hemoglobin 11.6 and platelets 278. ASSESSMENT: 1. Acute kidney injury with creatinine of 5.7 with volume overload and pulmonary edema, previously had acute kidney injury with a potassium of 7.2 and did require dialysis in December with eventual recovery of kidney function and creatinine, which came down to 2.4. Suspect cardiorenal syndrome. 2. Urinalysis noted. CK was okay. 3. Chronic kidney disease stage 4, followed by Dr. Stacy as an outpatient. During last hospitalization, creatinine did come down to 2.4 on 01/03. 4. Ischemic cardiomyopathy with an ejection fraction of 15-20% on 12/29/2019 echocardiogram, followed by [facility]. 5. History of atrial fibrillation. 6. Coronary artery disease with history of coronary artery bypass graft and biventricular implantable cardioverter-defibrillator. 7. Volume overload with pulmonary edema on chest x-ray. 8. Hyperphosphatemia with phosphorus of 6.6 on 02/13/2020. 9. Hypoalbuminemia with an albumin of 3.2. 10. Vitamin D deficiency with vitamin D level of 10. PLAN: 1. The patient will require dialysis. We will arrange for a temporary dialysis catheter to be placed tonight. The patient will dialyze today with fluid removal and will dialyze again tomorrow. 2. Check urine protein and creatinine ratio. 3. Check SPEP, serum immunofixation and free light chain assay. 4. Vitamin D2 has been ordered. 5. Check renal ultrasound. 6. We will discontinue Lasix drip as he has not had much response to it. We will check labs again in the a.m. Informed consent was obtained from the [address] [address] CONSULTATION Name: YANIV SPEARS Room: [address] IN Mary#: [id number] Admission: 02/12/20 Attend Phys: Med zarco tom Zaragoza Discharge: 02/16/20 Date of : 56 Report #: [id number] patient to proceed with temporary dialysis. Thank you for requesting my opinion in the care and management of this patient. <ELECTRONICALLY SIGNED> By: Ansley Millard MD 02/16/20 1518 [id number] Millard MD /nt
[2020-02-17 21:05] LABS: GLOBULIN TOTAL 2.9 g/dL (2.2-3.9); M-SPIKE Not Observed g/dL (Not Observed)
== END 2020-02-16 02:11 | DRG 682 ==
LOC: M.ERS 12:57 → M.2W 14:41 → M.TBA-ER 14:41 → M.2W 19:04
PROVIDERS: Family Medicine; Internal Medicine; Internal Medicine Nephrology; Radiology Vascular & Interventional Radiology; ADMIT Family Medicine; ATTEND Family Medicine
PROC: B5181ZA Fluoroscopy of Superior Vena Cava using Low Osmolar Contrast, Guidance (ICD-10-PCS; principal; 2020-02-13)
PROC: 02HV33Z Insertion of Infusion Device into Superior Vena Cava, Percutaneous Approach (ICD-10-PCS; principal; 2020-02-13)
PROC: 5A1D70Z Performance of Urinary Filtration, Intermittent, Less than 6 Hours Per Day (ICD-10-PCS; principal; 2020-02-13)
PROC: B548ZZA Ultrasonography of Superior Vena Cava, Guidance (ICD-10-PCS; principal; 2020-02-13)
PROC: 5A1D70Z Performance of Urinary Filtration, Intermittent, Less than 6 Hours Per Day (ICD-10-PCS; 2020-02-14)
PROC: 30233K1 Transfusion of Nonautologous Frozen Plasma into Peripheral Vein, Percutaneous Approach (ICD-10-PCS; 2020-02-14)
PROC: 5A2204Z Restoration of Cardiac Rhythm, Single (ICD-10-PCS; 2020-02-16)
PROC: 0BH17EZ Insertion of Endotracheal Airway into Trachea, Via Natural or Artificial Opening (ICD-10-PCS; 2020-02-16)
PROC: 5A12012 Performance of Cardiac Output, Single, Manual (ICD-10-PCS; 2020-02-16)
DX: N17.0 Acute kidney failure with tubular necrosis (principal); I50.23 Acute on chronic systolic (congestive) heart failure; E44.0 Moderate protein-calorie malnutrition; D68.59 Other primary thrombophilia; T82.838A Hemorrhage due to vascular prosthetic devices, implants and grafts, initial encounter; N18.4 Chronic kidney disease, stage 4 (severe); I25.10 Atherosclerotic heart disease of native coronary artery without angina pectoris; M10.9 Gout, unspecified; E66.9 Obesity, unspecified; E87.5 Hyperkalemia; I95.9 Hypotension, unspecified; E66.01 Morbid (severe) obesity due to excess calories; E55.9 Vitamin D deficiency, unspecified; I25.5 Ischemic cardiomyopathy; K21.9 Gastro-esophageal reflux disease without esophagitis; R73.03 Prediabetes; I48.91 Unspecified atrial fibrillation; I46.9 Cardiac arrest, cause unspecified; T50.2X5A Adverse effect of carbonic-anhydrase inhibitors, benzothiadiazides and other diuretics, initial encounter; N14.1 Nephropathy induced by other drugs, medicaments and biological substances; R73.9 Hyperglycemia, unspecified; Y84.8 Other medical procedures as the cause of abnormal reaction of the patient, or of later complication, without mention of misadventure at the time of the procedure; Z20.828 Contact with and (suspected) exposure to other viral communicable diseases; Y92.89 Other specified places as the place of occurrence of the external cause; Z79.82 Long term (current) use of aspirin; Z79.01 Long term (current) use of anticoagulants; Z79.899 Other long term (current) drug therapy; Z90.49 Acquired absence of other specified parts of digestive tract; Z88.0 Allergy status to penicillin; Z95.1 Presence of aortocoronary bypass graft; Z68.39 Body mass index [BMI] 39.0-39.9, adult; Z87.891 Personal history of nicotine dependence